=== PATIENT | female | born 1960 | race American Indian/Alaskan Native ===

== ENCOUNTER 2017-11-04 13:23 | Emergency (ER) | payer BC ==
[2017-11-04 14:03] LABS: Basophils % (Auto) 0.5 % (0.0-1.8); Eosinophils # (Auto) 0.1 K/mm3 (0.0-0.4); Eosinophils % (Auto) 2.9 % (0.0-4.3); Hematocrit 42.6 % (30.3-42.9); Hemoglobin 13.9 gm/dl (10.1-14.3); Lymphocytes # (Auto) 0.7 K/mm3 (1.2-5.4); Lymphocytes % (Auto) 12.6 % (13.4-35.0); Mean Corpuscular HGB Conc 33 % (30-34); Mean Corpuscular Hemoglobin 28 pg (28-32); Mean Corpuscular Volume 87 fl (79-97); Monocytes # (Auto) 0.6 K/mm3 (0.0-0.8); Monocytes % (Auto) 12.1 % (0.0-7.3); Platelet Count 190 K/mm3 (140-440); Red Blood Count 4.91 M/mm3 (3.65-5.03); Red Cell Distribution Width 16.3 % (13.2-15.2)
--- NOTE | 2017-11-04 14:12 | XRay Report ---
ROUTINE CHEST, TWO VIEWS: HISTORY: Shortness of breath. Mild pulmonary venous congestion and trace left pleural effusion are suspected. Heart size is within normal limits. No evidence for pneumonia or pneumothorax. The bony structures are intact. IMPRESSION: Mild pulmonary venous congestion and trace left pleural effusion.
[2017-11-04 14:21] LABS: BUN/Creatinine Ratio 29; Blood Urea Nitrogen 20 mg/dL (7-17); Calcium 9.2 mg/dL (8.4-10.2); Hemolysis Index 38
[2017-11-04] MEDS ORDERED: MUCINEX ER PO ONE (15:00)
[2017-11-04] MEDS ORDERED: TESSALON PERLES PO ONE (15:00)
[2017-11-04] MEDS ORDERED: APRESOLINE IV ONE (15:00)
[2017-11-04] MEDS ORDERED: LASIX IV ONE (15:01)
[2017-11-04] MEDS ORDERED: DUONEB *Not for PRN Use IH ONE (15:13)
--- NOTE | 2017-11-04 17:37 | Emergency Department Report ---
HPI - General Chief Complaint: Dyspnea/Respdistress Time Seen by Provider: 11/04/17 14:59 - HPI HPI: The patient is a 56-year-old female with a history of hypertension, who presents for evaluation of cough and shortness of breath. The patient was one week of a nonproductive cough, associated with wheezing, moderate severity, exacerbated with ambulation, improved at rest. She says that she has also experienced progressive shortness of breath for greater than the past month, mild to moderate severity, exacerbated with lying flat, improved with sitting up , and associated with bilateral lower leg swelling. She admits to noncompliance with antihypertensive medications for many months. Patient denies fever, trauma to the chest, chest pain, syncope, hemoptysis, unilateral leg swelling, oral contraceptive use, recent immobilization, history of DVT or PE, recent cancer. ED Past Medical Hx - Past Medical History Previous Medical History?: No - Surgical History Past Surgical History?: No - Social History Smoking Status: Never Smoker Substance Use Type: None - Medications Home Medications: Home Medications Medication Instructions Recorded Confirmed Last Taken Type ALBUTEROL Inhaler [ProAir HFA 2 puff IH QID PRN #1 inhalation 11/04/17 Unknown Rx Inhaler] Azithromycin [Zithromax Z-CATRACHO] 250 mg PO QDAY #6 tablet 11/04/17 Unknown Rx Benzonatate [Tessalon Perles] 100 mg PO Q8HR #20 capsule 11/04/17 Unknown Rx Furosemide [Lasix] 20 mg PO QDAY #30 tablet 11/04/17 Unknown Rx Hydrochlorothiazide [HCTZ] 25 mg PO QDAY #30 tablet 11/04/17 Unknown Rx ED Review of Systems ROS: Stated complaint: SOB Other details as noted in HPI Constitutional: denies: fever ENT: denies: throat or neck pain Respiratory: reports cough, shortness of breath Cardiovascular: denies: chest pain Endocrine: denies unexplained weight loss or gain Gastrointestinal: denies: abdominal pain, nausea Genitourinary: denies: dysuria Musculoskeletal: denies: leg swelling Skin: denies: rash Neurological: denies: headache Hematological/Lymphatic: denies: easy bleeding or easy bruising Psych: denies sadness or hopelessness Physical Exam - Physical Exam Vital Signs: Vital Signs 11/04/17 11/04/17 11/04/17 13:42 15:17 15:31 Temperature 97.3 F L Pulse Rate 60 51 L Pulse Rate [ Posterior Bilateral Bases ] Respiratory 20 17 Rate Respiratory Rate [Posterior Bilateral Bases] Blood Pressure 166/104 178/92 174/75 Blood Pressure [Right] O2 Sat by Pulse 100 98 97 Oximetry 11/04/17 11/04/17 11/04/17 15:49 15:50 16:00 Temperature Pulse Rate Pulse Rate [ 59 L Posterior Bilateral Bases ] Respiratory Rate Respiratory 18 Rate [Posterior Bilateral Bases] Blood Pressure 176/66 141/117 Blood Pressure [Right] O2 Sat by Pulse 97 100 Oximetry 11/04/17 11/04/17 11/04/17 16:34 16:39 16:40 Temperature Pulse Rate 63 Pulse Rate [ Posterior Bilateral Bases ] Respiratory 18 18 Rate Respiratory Rate [Posterior Bilateral Bases] Blood Pressure 174/75 Blood Pressure 173/74 [Right] O2 Sat by Pulse 85 98 Oximetry Physical Exam: General: well-nourished, well-developed, no acute distress Head: Normocephalic, atraumatic Eyes: normal sclera ENT: Mucous membranes are pink and moist Neck: trachea midline, neck supple, No neck stiffness, no cervical adenopathy Respiratory: Breath sounds equal bilaterally, no wheezing, rales, or rhonchi Cardio: S1 and S2 present, no murmurs, rubs, gallops, capillary refill is brisk Abdomen: Normoactive bowel sounds, soft abdomen, no rigidity, no guarding or rebound tenderness Chest WALL/Back: No tenderness to palpation of the chest wall, no CVA tenderness with percussion Musc: 1+ pitting edema of bilateral lower legs Skin: No rash Neuro: no facial drooping, normal speech Psych: Normal affect ED Course Vital Signs 11/04/17 11/04/17 11/04/17 13:42 15:17 15:31 Temperature 97.3 F L Pulse Rate 60 51 L Pulse Rate [ Posterior Bilateral Bases ] Respiratory 20 17 Rate Respiratory Rate [Posterior Bilateral Bases] Blood Pressure 166/104 178/92 174/75 Blood Pressure [Right] O2 Sat by Pulse 100 98 97 Oximetry 11/04/17 11/04/17 11/04/17 15:49 15:50 16:00 Temperature Pulse Rate Pulse Rate [ 59 L Posterior Bilateral Bases ] Respiratory Rate Respiratory 18 Rate [Posterior Bilateral Bases] Blood Pressure 176/66 141/117 Blood Pressure [Right] O2 Sat by Pulse 97 100 Oximetry 11/04/17 11/04/17 11/04/17 16:34 16:39 16:40 Temperature Pulse Rate 63 Pulse Rate [ Posterior Bilateral Bases ] Respiratory 18 18 Rate Respiratory Rate [Posterior Bilateral Bases] Blood Pressure 174/75 Blood Pressure 173/74 [Right] O2 Sat by Pulse 85 98 Oximetry ED Medical Decision Making - Lab Data Result diagrams: 11/04/17 13:51 11/04/17 13:51 - Medical Decision Making The patient was seen and examined by myself. The patient is placed on a school lunch monitor and continuous pulse ox. On initial evaluation, the patient was found to be in no distress. EKG was negative for findings suggestive of acute cardiac infarct. Labs and imaging are obtained. The patient is given Tessalon Perles for their cough and Mucinex for nasal congestion. Chest x-ray exhibits mild pulmonary vascular congestion consistent with suspected undiagnosed congestive heart failure. Lab results exhibited a mildly elevated BNP 1700, also consistent with diagnosis of congestive heart failure, and otherwise labs were non-concerning including levels of troponin, WBC, hemoglobin, hematocrit, electrolytes, renal function. The patient is given Lasix for treatment of suspected undiagnosed congestive heart failure. The patient was reevaluated and reported that their symptoms were markedly improved. As the patient has a ELIEZER risk score less than 2, and a well's score less than 2, the patient is at low risk of ACS or pulmonary emboli etiology of her symptoms. On reexamination the patient is found to have normal respiratory rate and O2 sat on pulse oximetry, with no costal retractions or diminishment of breath sounds on auscultation. The patient is stable for discharge with outpatient follow-up. She is counseled extensively regarding importance of outpatient follow-up cardiology for definitive echocardiogram diagnosis of probable congestive heart failure, and of compliance with hypertensive medication regimen. The patient is given follow-up and return instructions. The patient expressed understanding and agreed with the plan. The patient is discharged in stable condition. Critical care attestation.: If time is entered above; I have spent that time in minutes in the direct care of this critically ill patient, excluding procedure time. ED Disposition Clinical Impression: New onset of congestive heart failure, Acute bronchitis with bronchospasm, Hypertensive urgency Disposition: - TO HOME OR SELFCARE Is pt being admited?: No Does the pt Need Aspirin: No Condition: Stable Instructions: Acute Bronchitis (ED) Prescriptions: ALBUTEROL Inhaler [ProAir HFA Inhaler] 2 puff IH QID PRN #1 inhalation PRN Reason: Shortness Of Breath Azithromycin [Zithromax Z-CATRACHO] 250 mg PO QDAY #6 tablet Benzonatate [Tessalon Perles] 100 mg PO Q8HR #20 capsule Furosemide [Lasix] 20 mg PO QDAY #30 tablet Hydrochlorothiazide [HCTZ] 25 mg PO QDAY #30 tablet Referrals: SENAIT STUBBS MD [Staff Physician] - 3-5 Days ALECIA JIMENEZ MD [Staff Physician] - 3-5 Days Time of Disposition: 17:13
[2017-11-04 17:54] VITALS: BP 125/72
== END 2017-11-04 18:08 | disposition home or self-care (01) ==
LOC: ED 13:23
DX: I50.9 Heart failure, unspecified (principal); I16.0 Hypertensive urgency; J20.9 Acute bronchitis, unspecified
CPT/HCPCS: 36415; 71046; 80048; 83880; 85025; 93005; 93010; 94640; 96374; 96375; 99285; J0360; J1940

== ENCOUNTER 2017-11-04 21:35 | Emergency (ER) | payer BC ==
[2017-11-04 21:51] VITALS: BP 150/61
--- NOTE | 2017-11-05 03:12 | Emergency Department Report ---
ED Shortness of Breath HPI - General Chief Complaint: Dyspnea/Respdistress Stated Complaint: SOB Source: patient Mode of arrival: Ambulatory Limitations: No Limitations - History of Present Illness Initial Comments: This is a 56-year-old female nontoxic, well nourished in appearance, no acute signs of distress presents to the ED with c/o of cough and shortness of breathe. Patient stated she was seen by Dr. Aceves yesterday and was diagnosed with bronchitis and congestive heart failure, new onset. Patient stated she return to the emergency room because she was not able to go to pharmacy and diamond picker her prescriptions as it was closed. Patient stated that upon walking she developed shortness of breath but stated when she is at rest it is improved. Patient also stated that she experiences this for the past month and is mild to moderate severity and aches exacerbated with movement and walking and improved when sitting upright and resting. Patient states she also has bilateral leg swelling. Patient denies any chest pain, syncope, hemoptysis , fever, chills, nausea, vomiting, calf pain, calf tenderness. The patient denies any recent traumas, no colds recent hospital stays. Denies any history of DVT or PE. MD Complaint: shortness of breath, cough -: month(s) Pain Scale: 0 Consistency: intermittent Improves With: rest, upright position Worsens With: exertion, movement Associated Symptoms: denies other symptoms Treatments Prior to Arrival: none - Related Data Previous Rx's Medication Instructions Recorded Last Taken Type ALBUTEROL Inhaler [ProAir HFA 2 puff IH QID PRN #1 inhalation 11/04/17 Unknown Rx Inhaler] Azithromycin [Zithromax Z-CATRACHO] 250 mg PO QDAY #6 tablet 11/04/17 Unknown Rx Benzonatate [Tessalon Perles] 100 mg PO Q8HR #20 capsule 11/04/17 Unknown Rx Furosemide [Lasix] 20 mg PO QDAY #30 tablet 11/04/17 Unknown Rx Hydrochlorothiazide [HCTZ] 25 mg PO QDAY #30 tablet 11/04/17 Unknown Rx predniSONE [Deltasone] 40 mg PO QDAY #5 tab 11/05/17 Unknown Rx Allergies Allergy/AdvReac Type Severity Reaction Status Date / Time No Known Allergies Allergy Unverified 11/04/17 13:42 ED Review of Systems ROS: Stated complaint: SOB Other details as noted in HPI Constitutional: denies: chills, fever Eyes: denies: eye pain, eye discharge, vision change ENT: denies: ear pain, throat pain Respiratory: cough, shortness of breath. denies: wheezing Cardiovascular: denies: chest pain, palpitations Endocrine: no symptoms reported Gastrointestinal: denies: abdominal pain, nausea, diarrhea Genitourinary: denies: urgency, dysuria, discharge Musculoskeletal: denies: back pain, joint swelling, arthralgia Skin: denies: rash, lesions Neurological: denies: headache, weakness, paresthesias Psychiatric: denies: anxiety, depression Hematological/Lymphatic: denies: easy bleeding, easy bruising ED Past Medical Hx - Past Medical History Previous Medical History?: No - Surgical History Past Surgical History?: No - Social History Smoking Status: Never Smoker Substance Use Type: None - Medications Home Medications: Home Medications Medication Instructions Recorded Confirmed Last Taken Type ALBUTEROL Inhaler [ProAir HFA 2 puff IH QID PRN #1 inhalation 11/04/17 Unknown Rx Inhaler] Azithromycin [Zithromax Z-CATRACHO] 250 mg PO QDAY #6 tablet 11/04/17 Unknown Rx Benzonatate [Tessalon Perles] 100 mg PO Q8HR #20 capsule 11/04/17 Unknown Rx Furosemide [Lasix] 20 mg PO QDAY #30 tablet 11/04/17 Unknown Rx Hydrochlorothiazide [HCTZ] 25 mg PO QDAY #30 tablet 11/04/17 Unknown Rx predniSONE [Deltasone] 40 mg PO QDAY #5 tab 11/05/17 Unknown Rx ED Physical Exam - General Limitations: No Limitations General appearance: alert, in no apparent distress - Head Head exam: Present: atraumatic, normocephalic - Eye Eye exam: Present: normal appearance, PERRL, EOMI Pupils: Present: normal accommodation - ENT ENT exam: Present: normal exam, normal orophraynx, mucous membranes moist, TM's normal bilaterally, normal external ear exam - Neck Neck exam: Present: normal inspection, full ROM. Absent: tenderness, meningismus, lymphadenopathy, thyromegaly - Respiratory Respiratory exam: Present: normal lung sounds bilaterally. Absent: respiratory distress, wheezes, rales, rhonchi, stridor, chest wall tenderness, accessory muscle use, decreased breath sounds, prolonged expiratory - Cardiovascular Cardiovascular Exam: Present: regular rate, normal rhythm, normal heart sounds. Absent: bradycardia, tachycardia, irregular rhythm, systolic murmur, diastolic murmur, rubs, gallop - GI/Abdominal GI/Abdominal exam: Present: soft, normal bowel sounds. Absent: distended, tenderness, guarding, rebound, rigid, diminished bowel sounds - Extremities Exam Extremities exam: Present: normal inspection, full ROM, normal capillary refill. Absent: tenderness, pedal edema, joint swelling, calf tenderness - Back Exam Back exam: Present: normal inspection, full ROM. Absent: tenderness, CVA tenderness (R), CVA tenderness (L), muscle spasm, paraspinal tenderness, vertebral tenderness, rash noted - Neurological Exam Neurological exam: Present: alert, oriented X3, CN II-XII intact, normal gait, reflexes normal - Psychiatric Psychiatric exam: Present: normal affect, normal mood - Skin Skin exam: Present: warm, dry, intact, normal color. Absent: rash ED Course Vital Signs 11/04/17 11/05/17 21:43 03:47 Temperature 98.7 F Pulse Rate 61 62 Respiratory 17 17 Rate Blood Pressure 150/61 O2 Sat by Pulse 99 97 Oximetry - Reevaluation(s) Reevaluation #1: 11/05/17 03:15 Patient is speaking in full sentences with no signs of distress noted. ED Medical Decision Making - Medical Decision Making This is a 56-year-old female that presents with CHF and bronchitis. Patient is stable and was examined by me. Patient was seen this morning and received medications which patient states she did not fill due to pharmacy closed. Upon examination there is no pulmonary or cardiac abnormalities. Patient did state that her shortness of breath and cough is no longer present and patient refused more blood work such as d-dimer. I explained to the patient that this may rule out pulmonary embolism but she refused as she states she feels much better. Patient did receive prednisone at discharge. I also instructed to the patient that there is a [facility] pharmacy across the street in 24 hours and that she needs to fill her medication after discharge from here. Patient's vital signs are stable prior to discharge. Patient was instructed Follow-up with a primary care doctor in 3-5 days or if symptoms worsen and continue return to emergency room as soon as possible. At time of discharge, the patient does not seem toxic or ill in appearance. No acute signs of distress noted. Patient agrees to discharge treatment plan of care. No further questions noted by the patient. Critical care attestation.: If time is entered above; I have spent that time in minutes in the direct care of this critically ill patient, excluding procedure time. ED Disposition Clinical Impression: Bronchitis CHF (congestive heart failure) Qualifiers: Congestive heart failure type: unspecified Congestive heart failure chronicity : unspecified Qualified Code(s): I50.9 - Heart failure, unspecified Disposition: TO HOME OR SELFCARE Is pt being admited?: No Does the pt Need Aspirin: No Condition: Stable Instructions: Heart Failure (ED), Chronic Bronchitis (ED) Additional Instructions: Follow-up with a primary care doctor in 3-5 days or if symptoms worsen and continue return to emergency room as soon as possible. You may go across the street to [facility] pharmacy that is open 24 hours and please fill the medications that have been prescribed by Dr. Aceves and myself. Prescriptions: predniSONE [Deltasone] 40 mg PO QDAY #5 tab Referrals: PRIMARY CAREMD [Primary Care Provider] - 3-5 Days ALECIA JIMENEZ MD [Staff Physician] - 3-5 Days [facility] [Outside] - 3-5 Days [facility] [Outside] - 3-5 Days Forms: Work/School Release Form(ED)
== END 2017-11-05 03:47 | disposition home or self-care (01) ==
LOC: ED 21:35
DX: J40 Bronchitis, not specified as acute or chronic (principal); I50.9 Heart failure, unspecified
CPT/HCPCS: 99282

== ENCOUNTER 2018-07-19 14:09 | Outpatient (CLI) | payer BC | END 2018-07-19 14:10 | disposition home or self-care (01) | LOC: LAB 14:09 | PROVIDERS: ATTEND Internal Medicine Critical Care Medicine | DX: D86.9 Sarcoidosis, unspecified (principal); I11.0 Hypertensive heart disease with heart failure; I50.9 Heart failure, unspecified; J44.9 Chronic obstructive pulmonary disease, unspecified; E78.00 Pure hypercholesterolemia, unspecified | CPT/HCPCS: 36600; 82803 ==

== ENCOUNTER 2018-07-22 09:40 | Outpatient (CLI) | payer BC ==
[2018-07-22 11:49] LABS: Blood Urea Nitrogen 24 mg/dL (7-17)
--- NOTE | 2018-07-22 13:46 | Cat Scan Report ---
CT CHEST WITH CONTRAST INDICATION: Hypoxemia, shortness of breath. COMPARISON: None similar. FINDINGS: Chest CT performed following intravenous administration of 100 cc of Omnipaque 300. Mild cardiomegaly and left upper chest wall tripolar AICD noted on the lithographic camera operator view with dual-chamber leads creating streak artifact. No effusions. However, extensive low attenuation, encasing lymphadenopathy noted throughout the mediastinum and the minerva with few index measurements as follows: 1. An AP window lymph node is approximately 1.6 cm, axial series 2, image 33. 2. Subcarinal soft tissue is approximately 3.2 x 2.5 cm, axial image 51. 3. Few bilateral axillary lymph nodes also seen, the largest approximately 3 x 1.3 cm on the left, axial image 22. No aortic aneurysm or dissection. No suspicious pulmonary arterial filling defects. Patent central airway. Normal imaged thyroid. Pneumonia noted in the right middle lobe as also involving mid to lower aspect of the right upper lobe. Few small nonspecific right upper lobe pleural-based nodularity as on axial series 2, images 30-40 measuring up to 0.5 cm. Mild lingular scarring also noted. Extreme bibasilar slight atelectasis or scarring as well, left more than right as on axial image 103. Nonspecific distal esophageal wall prominence/thickening, not excluded for gastroesophageal reflux and/or hiatal hernia, amongst others. Imaged upper abdomen demonstrates multiple enlarged lymph nodes, the largest infrapancreatic on the left approximately 4.1 x 1.8 cm on axial image 115, series 2. Few small retroperitoneal lymph nodes also measure up to approximately 1.3 cm left para-aortic, axial image 121, series 2. Approximately 7 x 2.2 cm nonspecific right upper flank subcutaneous density partially imaged on axial image 125, series 2. Approximately 2 cm nodule in the right breast medially also noted with a small peripheral calcification on axial image 38. Mild multilevel spinal degenerative spurring. CONCLUSION: 1. Intrathoracic lymphadenopathy noted, as detailed above, diffuse mediastinal and surrounding major vessels and the airway with possibly in part post-obstructive right lung pneumonia, as described above. Lymphoma remains a primary consideration, amongst others. 2. Various other findings as mild cardiomegaly, left AICD, mild distal esophageal prominence/thickening, right breast nodule and abdominal lymphadenopathy, amongst others, as described above. Thank you for the opportunity to participate in this patient's care.
== END 2018-07-22 09:41 | disposition home or self-care (01) ==
LOC: CT 09:40
PROVIDERS: ATTEND Internal Medicine Critical Care Medicine
DX: I51.7 Cardiomegaly (principal); N63.10 Unspecified lump in the right breast, unspecified quadrant; M46.09 Spinal enthesopathy, multiple sites in spine; I11.0 Hypertensive heart disease with heart failure; I50.9 Heart failure, unspecified; E78.00 Pure hypercholesterolemia, unspecified; J44.9 Chronic obstructive pulmonary disease, unspecified; Z87.891 Personal history of nicotine dependence
CPT/HCPCS: 36415; 71260; 82565; 84520; Q9967

== ENCOUNTER 2019-03-26 20:37 | Emergency (ER) | payer MEDICAID, OTHER ==
--- NOTE | 2019-03-26 20:53 | Event Note ---
ED Screening Note Date of service: 03/26/19 Time: 20:48 ED Screening Note: 58 y/o female c/o EWA times 3 days. Is on home Oxg 2 liter. This initial assessment/diagnostic orders/clinical plan/treatment(s) is/are subject to change based on patients health status, clinical progression and re-assessment by fellow clinical providers in the ED. Further treatment and workup at subsequent clinical providers discretion. Patient/guardian urged not to elope from the ED as their condition may be serious if not clinically assessed and managed. Initial orders include:
--- NOTE | 2019-03-26 22:42 | XRay Report ---
PROCEDURE: Chest. TECHNIQUE: PA and lateral chest radiographs were obtained. HISTORY: Difficulty breathing. COMPARISONS: Chest 03/19/2018. FINDINGS: The heart size is normal. There is mild tortuosity and calcification in the thoracic aorta. The lungs are clear and well expanded. There are no pleural effusions. There is a left-sided AICD device. The soft tissues and regional skeleton are unremarkable. IMPRESSION: No evidence of acute disease. This document is electronically signed by Sukhwinder Stewart MD., March 26 2019 10:40:24 PM ET
[2019-03-26] MEDS ORDERED: PROVENTIL IH ONE (23:02)
[2019-03-26] MEDS ORDERED: ATROVENT IH ONE (23:02)
[2019-03-26] MEDS ORDERED: LEVAQUIN PO ONE (23:03)
[2019-03-26] MEDS ORDERED: DELTASONE PO ONE (23:03)
[2019-03-26 23:18] VITALS: BP 111/93
--- NOTE | 2019-03-26 23:31 | Emergency Department Report ---
ED Shortness of Breath HPI - General Chief Complaint: Dyspnea/Respdistress Stated Complaint: EWA Time Seen by Provider: 03/26/19 22:26 Source: patient Mode of arrival: Ambulatory Limitations: No Limitations - History of Present Illness Initial Comments: Mrs. García is a very pleasant 58-year-old female with history of CHF diastolic EF 55%, sarcoidosis, oxygen dependent with 3 liters NC who presents for shortness of breath and wheezing. She has mild nonproductive cough. Symptoms have worsened over the last 3 days. Symptoms are normally triggered with changes in weather and heat exposure. She has been using her nebulizer therapy more frequently. She has a new manager animal. First outpatient evaluation with her new manager animal Dr. Alcala occurred in spring this year. She has not had recent antibiotics or steroids. 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 She recently began using oxygen therapy in July. According to electronic record, she has had previous negative cardiac stress test. MD Complaint: shortness of breath -: Gradual, days(s) (3) Severity: moderate Consistency: constant Improves With: bronchodilators Known History Of: congestive heart failure, other (sarcoidosis) - Related Data Previous Rx's Medication Instructions Recorded Last Taken Type Acetaminophen [Acetaminophen TAB] 650 mg PO Q4H PRN #30 tablet 03/20/18 Unknown Rx Atorvastatin Calcium [Lipitor] 20 mg PO HS #30 tab 03/20/18 03/16/18 Rx Famotidine [Pepcid] 20 mg PO BID #30 tablet 03/20/18 Unknown Rx Furosemide [Lasix TAB] 40 mg PO 0600,1800 #60 tablet 03/20/18 Unknown Rx Ipratropium/Albuterol Sulfate 1 ampul IH TIDRT PRN #30 ampul.neb 03/20/18 Unknown Rx [DUONEB *Not for PRN Use*] Metoprolol Succinate [Toprol Xl] 25 mg PO QDAY #30 tab.er.24h 03/20/18 Unknown Rx Potassium Chloride 20 meq PO BID #120 capsule.er 03/20/18 Unknown Rx levoFLOXacin [Levaquin TAB] 750 mg PO Q24H #4 tablet 03/20/18 Unknown Rx oxyCODONE /ACETAMINOPHEN [Percocet 1 tab PO Q6H PRN #10 tablet 03/20/18 Unknown Rx 5/325 mg] Prednisone [predniSONE 10 mg 10 mg PO .TAPER #1 tab.ds.pk 03/27/19 Unknown Rx (6-Day Pack, 21 Tabs)] levoFLOXacin [Levaquin TAB] 500 mg PO QDAY 6 Days #6 tablet 03/27/19 Unknown Rx Allergies Allergy/AdvReac Type Severity Reaction Status Date / Time No Known Allergies Allergy Unverified 11/04/17 13:42 ED Review of Systems ROS: Stated complaint: EWA Other details as noted in HPI Comment: All other systems reviewed and negative Constitutional: fever, malaise Respiratory: cough, shortness of breath, wheezing Cardiovascular: denies: chest pain ED Past Medical Hx - Past Medical History Previous Medical History?: Yes Hx Hypertension: Yes Hx Congestive Heart Failure: Yes Hx Asthma: Yes Hx COPD: Yes (Home o2 user) Additional medical history: sarcoidosis. 3 degree Heart block - Surgical History Past Surgical History?: Yes Additional Surgical History: pacemaker, defibrillator - Social History Smoking Status: Never Smoker Substance Use Type: None - Medications Home Medications: Home Medications Medication Instructions Recorded Confirmed Last Taken Type Acetaminophen [Acetaminophen TAB] 650 mg PO Q4H PRN #30 tablet 03/20/18 Unknown Rx Atorvastatin Calcium [Lipitor] 20 mg PO HS #30 tab 03/20/18 03/16/18 03/16/18 Rx Famotidine [Pepcid] 20 mg PO BID #30 tablet 03/20/18 Unknown Rx Furosemide [Lasix TAB] 40 mg PO 0600,1800 #60 tablet 03/20/18 Unknown Rx Ipratropium/Albuterol Sulfate 1 ampul IH TIDRT PRN #30 ampul.neb 03/20/18 Unknown Rx [DUONEB *Not for PRN Use*] Metoprolol Succinate [Toprol Xl] 25 mg PO QDAY #30 tab.er.24h 03/20/18 Unknown Rx Potassium Chloride 20 meq PO BID #120 capsule.er 03/20/18 Unknown Rx levoFLOXacin [Levaquin TAB] 750 mg PO Q24H #4 tablet 03/20/18 Unknown Rx oxyCODONE /ACETAMINOPHEN [Percocet 1 tab PO Q6H PRN #10 tablet 03/20/18 Unknown Rx 5/325 mg] Prednisone [predniSONE 10 mg 10 mg PO .TAPER #1 tab.ds.pk 03/27/19 Unknown Rx (6-Day Pack, 21 Tabs)] levoFLOXacin [Levaquin TAB] 500 mg PO QDAY 6 Days #6 tablet 03/27/19 Unknown Rx ED Physical Exam - General Limitations: No Limitations General appearance: alert, in no apparent distress, other (speaking in full sentences with mild effort, laying semi-supine position with head of bed elevated 30) - Head Head exam: Present: atraumatic, normocephalic - Eye Eye exam: Present: normal appearance - ENT ENT exam: Present: mucous membranes moist - Neck Neck exam: Present: normal inspection, full ROM - Respiratory Respiratory exam: Present: wheezes, prolonged expiratory. Absent: respiratory distress, rales, rhonchi, accessory muscle use - Cardiovascular Cardiovascular Exam: Present: regular rate, normal rhythm, normal heart sounds. Absent: systolic murmur, diastolic murmur, rubs, gallop - GI/Abdominal GI/Abdominal exam: Present: soft, normal bowel sounds. Absent: distended, tenderness, guarding, rebound - Extremities Exam Extremities exam: Present: normal inspection - Back Exam Back exam: Present: normal inspection - Neurological Exam Neurological exam: Present: alert, oriented X3 - Psychiatric Psychiatric exam: Present: normal affect, normal mood - Skin Skin exam: Present: warm, dry, intact, normal color. Absent: rash ED Course Vital Signs 03/26/19 03/26/19 03/26/19 20:57 22:08 22:16 Temperature 98.1 F Pulse Rate 99 H Pulse Rate [ Bilateral Throughout] Respiratory 18 Rate Respiratory Rate [Bilateral Throughout] Blood Pressure 156/96 164/106 O2 Sat by Pulse 90 97 99 Oximetry 03/26/19 03/26/19 03/26/19 22:46 23:00 23:16 Temperature Pulse Rate Pulse Rate [ Bilateral Throughout] Respiratory Rate Respiratory Rate [Bilateral Throughout] Blood Pressure 111/93 111/93 111/93 O2 Sat by Pulse 97 100 99 Oximetry 03/26/19 03/27/19 23:32 00:11 Temperature Pulse Rate Pulse Rate [ 77 85 Bilateral Throughout] Respiratory Rate Respiratory 18 18 Rate [Bilateral Throughout] Blood Pressure O2 Sat by Pulse Oximetry ED Medical Decision Making - Lab Data Vital Signs - 24 hr 03/26/19 03/26/19 03/26/19 20:57 22:08 22:16 Temperature 98.1 F Pulse Rate 99 H Pulse Rate [ Bilateral Throughout] Respiratory 18 Rate Respiratory Rate [Bilateral Throughout] Blood Pressure 156/96 164/106 O2 Sat by Pulse 90 97 99 Oximetry 03/26/19 03/26/19 03/26/19 22:46 23:00 23:16 Temperature Pulse Rate Pulse Rate [ Bilateral Throughout] Respiratory Rate Respiratory Rate [Bilateral Throughout] Blood Pressure 111/93 111/93 111/93 O2 Sat by Pulse 97 100 99 Oximetry 03/26/19 03/27/19 23:32 00:11 Temperature Pulse Rate Pulse Rate [ 77 85 Bilateral Throughout] Respiratory Rate Respiratory 18 18 Rate [Bilateral Throughout] Blood Pressure O2 Sat by Pulse Oximetry - EKG Data 03/27/19 00:33 EKG obtained 2102 AV dual paced rate 90 beats a minute widened QRS no significant ST elevation no signs of ischemia prolonged QT interval - Radiology Data Radiology results: report reviewed Chest x-ray no acute process according to radiology report - Medical Decision Making Ms. García presents with shortness of breath. She has history of sarcoidosis, diastolic CHF. Wheezing on exam. Chest x-ray without signs of edema or infiltrate. She received subjective improvement with bronchodilator therapy, by mouth steroids, by mouth antibiotics. I offered hospitalization. Mrs. García preferred to be discharged home. She will call 911 if her symptoms progress. Discharged home in stable condition. Prescription Levaquin and prednisone. Critical care attestation.: If time is entered above; I have spent that time in minutes in the direct care of this critically ill patient, excluding procedure time. ED Disposition Clinical Impression: Acute dyspnea, Sarcoidosis of lung, CHF (congestive heart failure) Disposition: TO HOME OR SELFCARE Is pt being admited?: No Does the pt Need Aspirin: No Condition: Stable Additional Instructions: Please return to the ER if you have any concerns. Please call 911 if your symptoms progress or worsen. It was truly a pleasure meeting you. Prescriptions: levoFLOXacin [Levaquin TAB] 500 mg PO QDAY 6 Days #6 tablet Prednisone [predniSONE 10 mg (6-Day Pack, 21 Tabs)] 10 mg PO .TAPER #1 tab.ds.pk
== END 2019-03-27 01:16 | disposition home or self-care (01) ==
LOC: ED 20:37
DX: D86.0 Sarcoidosis of lung (principal); I11.0 Hypertensive heart disease with heart failure; I50.30 Unspecified diastolic (congestive) heart failure; R06.00 Dyspnea, unspecified; J44.9 Chronic obstructive pulmonary disease, unspecified; Z95.0 Presence of cardiac pacemaker; Z79.899 Other long term (current) drug therapy
CPT/HCPCS: 71046; 93005; 93010; 94640; 99283; J7512; 94644